=== PATIENT | male | born 1970 | race Two or more races ===

== ENCOUNTER 2024-09-03 02:09 | Emergency (ER) | payer SELFPAY ==
[2024-09-03 02:10] VITALS: BP 157/104; PULSE 120; RESP 20; TEMP 36.7; O2SAT 97; BMI 26.6
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
== END 2024-09-03 02:41 ==
LOC: SERX 03:39
PROVIDERS: Emergency Provider Emergency Medicine
DX: Z02.89 Encounter for other administrative examinations (principal); Z76.89 Persons encountering health services in other specified circumstances
CPT/HCPCS: 99281